=== PATIENT | female | born 1985 | race Caucasian/White ===

== ENCOUNTER 2017-11-25 07:13 | Inpatient (IN) | payer BC ==
[2017-11-25] VITALS (39 sets, daily range): BP systolic 99–133; BP diastolic 57–83; PULSE 57–125; TEMP 97.8–99
[~2017-11-25] VITALS: Ht 170.2 cm; Wt 105.9 kg
[~2017-11-25 07:13] MED LIST: MOTRIN 800800 MG/TAB PO; PERCOCET 325 MG1 TA2 PO; PRENATAL1 TA1 PO
[2017-11-25] MEDS ORDERED: SYNTHROID 0.10.15 MG PO (07:25)
[2017-11-25 08:18] LABS: BASO % 0.1 % (0.0-2.0); EOS # 0.1 (0.0-0.7); EOS % 0.7 % (0-4.0); GRAN # 4.5 (1.4-6.5); HEMATOCRIT 33.2 % (37.0-47.0); HEMOGLOBIN 11.1 g/dl (12.5-16.0); LYMPH # 2.1 (1.2-3.4); LYMPH % 28.4 % (20.0-51.0); MEAN CELL VOLUME 88 fl (80.0-100.0); MEAN CORPUSCULAR HEMOGLOBIN 29 pg (27.0-31.0); MEAN CORPUSCULAR HGB CONC 33 g/dl (33.0-37.0); MEAN PLATELET VOLUME 11.2 fl (7.4-10.4); MONO # 0.6 (0.1-0.6); MONO % 8.5 % (1.7-9.3); PLATELET COUNT 211 K/mm3 (130-400); RED BLOOD COUNT 3.79 M/mm3 (4.10-5.30); REDCELL DISTRIBUTION WIDTH-CV 15.1 % (11.5-14.5)
[2017-11-26 00:30] VITALS: BP 116/52; PULSE 76; TEMP 97.9
[2017-11-26 04:00] VITALS: BP 119/68; PULSE 80; TEMP 97.9
[2017-11-26 07:56] VITALS: BP 111/68; PULSE 86; TEMP 97.8
[2017-11-26 14:42] VITALS: BP 119/28; PULSE 78; TEMP 98.7
[2017-11-26 19:00] VITALS: BP 127/62; PULSE 80; TEMP 98.5
[2017-11-27 08:45] VITALS: BP 115/62; PULSE 814; TEMP 98.5
[2017-11-27] MEDS ORDERED: MOTRIN 800800 MG/TAB PO (10:13)
== END 2017-11-27 12:20 | disposition home or self-care (01) | DRG 807 ==
LOC: LDR 07:13 → OB 16:45
PROVIDERS: Obstetrics & Gynecology
PROC: 10E0XZZ Delivery of Products of Conception, External Approach (ICD-10-PCS; principal; 2017-11-25)
PROC: 0KQM0ZZ Repair Perineum Muscle, Open Approach (ICD-10-PCS; 2017-11-25)
PROC: 10907ZC Drainage of Amniotic Fluid, Therapeutic from Products of Conception, Via Natural or Artificial Opening (ICD-10-PCS; 2017-11-25)
PROC: 3E033VJ Introduction of Other Hormone into Peripheral Vein, Percutaneous Approach (ICD-10-PCS; 2017-11-25)
DX: O48.0 Post-term pregnancy (principal); Z37.0 Single live birth; Z3A.40 40 weeks gestation of pregnancy; O70.1 Second degree perineal laceration during delivery; O99.284 Endocrine, nutritional and metabolic diseases complicating childbirth; E03.9 Hypothyroidism, unspecified; O99.62 Diseases of the digestive system complicating childbirth; K21.9 Gastro-esophageal reflux disease without esophagitis; R76.11 Nonspecific reaction to tuberculin skin test without active tuberculosis
CPT/HCPCS: J2590; J7120